=== PATIENT | female | born 1985 | race American Indian/Alaskan Native ===

== ENCOUNTER 2017-07-03 16:25 | Emergency (ER) | payer BC, OTHER ==
[2017-07-03 16:25] VITALS: BMI 38.2
[2017-07-03 16:40] VITALS: TEMP 98; O2SAT 98
--- NOTE | 2017-07-03 17:12 | ED PDOC ---
Arrival/HPI - General Chief Complaint: Upper Extremity Problem/Injury Time Seen by Provider: 07/03/17 17:11 Historian: Patient - History of Present Illness Narrative History of Present Illness (Text): 07/03/17 17:11 This 32 yo female hx anxiety disorder, depression , presents to this ED c/o right wrist pain, and numbness x 2 days. Patient stated having similar symptoms for about a year. Patient admits using her computer at work very often. Patient admits taking OTC Aleve for pain without significant relief of pain. Patient denies arm swelling, skin rash, erythema, ecchymosis, recent trauma, blood disorder, hormonal replacement therapy, or recent surgical procedure. Past Medical History - Provider Review Nursing Documentation Reviewed: Yes - Infectious Disease Hx of Infectious Diseases: None - Tetanus Immunization Tetanus Immunization: Unknown - Past Medical History Past Medical History: No Previous - Cardiac Hx Cardiac Disorders: No - Pulmonary Hx Respiratory Disorders: No - Neurological Hx Neurological Disorder: No - HEENT Hx HEENT Disorder: No - Renal Hx Renal Disorder: No - Endocrine/Metabolic Hx Endocrine Disorders: No - Hematological/Oncological Hx Blood Disorders: No - Integumentary Hx Dermatological Disorder: No - Musculoskeletal/Rheumatological Hx Musculoskeletal Disorders: Yes Other/Comment: Right forearm problem with pain and numbness - Gastrointestinal Hx Gastrointestinal Disorders: No - Genitourinary/Gynecological Hx Genitourinary Disorders: No Other/Comment: Endometriosis - Psychiatric Hx Psychophysiologic Disorder: Yes Hx Anxiety: Yes Hx Depression: Yes Hx Substance Use: No - Past Surgical History Past Surgical History: No Previous - Anesthesia Hx Anesthesia: No Hx Anesthesia Reactions: No Hx Malignant Hyperthermia: No - Suicidal Assessment Feels Threatened In Home Enviroment: No Family/Social History - Physician Review Nursing Documentation Reviewed: Yes Family/Social History: Other (noncontributory) Smoking Status: Never Smoked Hx Alcohol Use: No Hx Substance Use: No Hx Substance Use Treatment: No Allergies/Home Meds Allergies/Adverse Reactions: Allergies No Known Allergies Allergy (Verified 07/03/17 16:39) Review of Systems - Review of Systems Constitutional: Normal. absent: Fatigue, Weight Change, Fevers Eyes: Normal ENT: Normal Respiratory: Normal Cardiovascular: Normal Gastrointestinal: Normal Genitourinary Female: Normal Musculoskeletal: Other (see hpi) Skin: Normal Neurological: Normal Endocrine: Normal Hemo/Lymphatic: Normal Psychiatric: Normal Physical Exam Vital Signs Temp Pulse Resp BP Pulse Ox 07/03/17 18:25 88 18 138/79 98 07/03/17 16:33 98 F 95 H 17 110/74 98 Temperature: Afebrile Blood Pressure: Normal Pulse: Regular Respiratory Rate: Normal Appearance: Positive for: Well-Appearing, Non-Toxic, Comfortable Pain Distress: None Mental Status: Positive for: Alert and Oriented X 3 - Systems Exam Head: Present: Atraumatic, Normocephalic Mouth: Present: Moist Mucous Membranes Upper Extremity: Present: Normal Inspection, Normal ROM, NORMAL PULSES, Neurovascularly Intact, Capillary Refill < 2s, Norm 2-Pt Discrimination, Other ( Phalen's sign and Tinel sign were negative). No: Cyanosis, Edema, Tenderness, Swelling, Erythema, Temperature Abnormalties, Deformity Lower Extremity: Present: Normal Inspection, Normal ROM Neurological: Present: GCS=15, CN II-XII Intact, Speech Normal, Motor Func Grossly Intact, Normal Sensory Function, Normal Cerebellar Funct, Gait Normal Skin: Present: Warm, Dry, Normal Color. No: Rashes Psychiatric: Present: Alert, Oriented x 3, Normal Insight, Normal Concentration Medical Decision Making ED Course and Treatment: 07/03/17 17:32 Patient came c/o intermittent right wrist, and right forearm pain with numbness for over a year. Patient was examined by Neurologist x 5 months ago. Patient stated symptoms worsen 2 days ago. Patient denies trauma, recent surgical procedure, recent travel, arm swelling, skin rash, bruises, hormonal replacement therapy, blood disorder. Physical exam was unremarkable. Wrist x- rays pending. Wrist x-rays: no fx. Patient stated she has a wrist splint, Velcro. Patient has been recommended to f/u PMD, and/or orthopedist in 1-2 days. Patient was recommended to avoid placing right wrist or hand under her head during sleep. Re-evaluation Time: 18:08 Reassessment Condition: Re-examined, Improved - RAD Interpretation Narrative RAD Interpretations (Text): 07/03/17 18:08 Wrist x-rays: No fracture or sublux. Radiology Orders: 07/03/17 17:16 WRIST, RIGHT 3 VIEWS [RAD] Stat Disposition/Present on Arrival - Present on Arrival Any Indicators Present on Arrival: No History of DVT/PE: No History of Uncontrolled Diabetes: No Urinary Catheter: No History of Decub. Ulcer: No History Surgical Site Infection Following: None - Disposition Have Diagnosis and Disposition been Completed?: Yes Diagnosis: Wrist pain, right Disposition: HOME/ ROUTINE Disposition Time: 18:09 Patient Plan: Discharge Condition: GOOD Additional Instructions: Call private doctor for follow up visit in 1-2 days. Take medication as instructed. Continue using wrist splint. return to emergency if symptoms worsen. Call private neurologist and orthopedist for revaluation. Do not put your hand or wrist under your head , especially when you sleep. Prescriptions: Famotidine [Pepcid] 40 mg PO DAILY #10 tablet Ibuprofen [Motrin] 400 mg PO Q8H PRN #20 tab PRN Reason: Pain, Severe (8-10) Referrals: [facility] [Outside] - Follow up with primary [facility] [Outside] - Follow up with primary Dina Kunz DO [Primary Care Provider] - Follow up with primary Phuc Campbell DO [Staff Provider] - Follow up with primary Forms: [employer] ([place]ian)
[2017-07-03 18:36] VITALS: BP 138/79; PULSE 88; RESP 18
--- NOTE | 2017-07-04 09:47 | RAD ---
PROCEDURE: Right Wrist Radiographs. HISTORY: pain COMPARISON: None. FINDINGS: BONES: Normal. No fracture. JOINTS: Normal. No dislocation. SOFT TISSUES: Normal. OTHER FINDINGS: None. IMPRESSION: Normal right wrist radiographs.
== END 2017-07-03 18:36 | disposition home or self-care (01) ==
LOC: ED 16:25
DX: M25.531 Pain in right wrist (principal)